=== PATIENT | male | born 1955 | race African-American/Black ===

== ENCOUNTER 2017-08-08 12:09 | Emergency (ER) | payer MEDICAID ==
[~2017-08-08] VITALS: Ht 177.8 cm; Wt 75.0 kg
[2017-08-08 18:32] LABS: HEMATOCRIT. 35.5 % (42.0-52.0); HEMOGLOBIN. 11.5 g/dL (14.0-18.0); MEAN CORPUSCULAR HEMOGLOBIN 27.8 pg (28.0-32.0); MEAN PLATELET VOLUME 9.8 fl (7.4-10.4); PLATELET 78 x1000/uL (130-400); RED BLOOD CELL COUNT 4.13 mill/uL (4.7-6.1); RED CELL DISTRIBUTION WIDTH 16.8 % (11.6-14.6)
[2017-08-08 18:35] LABS: INR 1.4; PARTIAL THROMBOPLASTIN TIME 27.8 sec (23.4-31.0); PROTHROMBIN TIME 14.4 sec (9.4-11.6)
[2017-08-08 18:42] LABS: CARBON DIOXIDE 29 mEq/L (21-32); CHLORIDE 107 mEq/L (98-107)
[2017-08-08] MEDS ORDERED: SODIUM CHLORIDE 0.9% 1,000 ML IV ONE (18:45)
[2017-08-08 19:00] LABS: PLATELET ESTIMATE DECREASED
[2017-08-08] MEDS ORDERED: LOPERAMIDE 2 MG/10 ML UDC PO ONE (20:00)
[2017-08-08] MEDS ORDERED: LOPERAMIDE HCL 2MG CAPSULE PO NR (20:15)
[2017-08-08] MEDS ORDERED: METRONIDAZOLE 500MG TABLET PO ONE (21:00)
[2017-08-08] MEDS ORDERED: LEVOFLOXACIN 500MG TABLET PO ONE (21:00)
[2017-08-09 01:00] VITALS: BP 124/68
== END 2017-08-09 01:05 | disposition home or self-care (01) ==
LOC: ER 12:09
DX: R19.7 Diarrhea, unspecified (principal); I10 Essential (primary) hypertension; K80.20 Calculus of gallbladder without cholecystitis without obstruction; F17.200 Nicotine dependence, unspecified, uncomplicated; F32.9 Major depressive disorder, single episode, unspecified; F14.10 Cocaine abuse, uncomplicated; F10.20 Alcohol dependence, uncomplicated
CPT/HCPCS: 36415; 76705; 80053; 83690; 85025; 85610; 85730; 96360; 96361; 99285; J7030; Z7610

== ENCOUNTER 2017-08-09 02:41 | Emergency (ER) | payer MEDICAID ==
[~2017-08-09] VITALS: Ht 190.5 cm; Wt 83.0 kg
[2017-08-09] MEDS ORDERED: IBUPROFEN 600MG TABLET PO ONE (08:30)
[2017-08-09 09:18] VITALS: BP 126/77
== END 2017-08-09 09:35 | disposition home or self-care (01) ==
LOC: ER 02:41
DX: M25.561 Pain in right knee (principal); M25.562 Pain in left knee; G89.29 Other chronic pain; I10 Essential (primary) hypertension; F17.200 Nicotine dependence, unspecified, uncomplicated
CPT/HCPCS: 73562; 99284

== ENCOUNTER 2017-10-25 21:45 | Emergency (ER) | payer MEDICAID ==
[~2017-10-25] VITALS: Ht 180.3 cm; Wt 84.0 kg
[2017-10-25 23:44] LABS: BASOPHILS % 0.8 % (0.0-2.0); EOSINOPHILS % 1.2 % (0.0-5.0); HEMATOCRIT. 37.6 % (42.0-52.0); HEMOGLOBIN. 12.1 g/dL (14.0-18.0); LYMPHOCYTES % 30.6 % (20.0-50.0); MEAN CORPUSCULAR HEMOGLOBIN 27.1 pg (28.0-32.0); MEAN CORPUSCULAR VOLUME 83.9 fL (80.0-94.0); MEAN PLATELET VOLUME 9.4 fl (7.4-10.4); MONOCYTES % 13.5 % (2.0-8.0); NEUTROPHILS % 53.9 % (40.0-76.0); PLATELET 84 x1000/uL (130-400); RED BLOOD CELL COUNT 4.47 mill/uL (4.7-6.1); RED CELL DISTRIBUTION WIDTH 19.2 % (11.6-14.6)
[2017-10-25 23:46] LABS: CHLORIDE 107 mEq/L (98-107)
[2017-10-25 23:52] LABS: ETHANOL BLOOD < 10 mg/dL
[2017-10-26 01:33] LABS: CLARITY URINE CLEAR (CLEAR); COLOR URINE DARK YELLOW (YELLOW); KETONES URINE TRACE (NEGATIVE); LEUKOCYTE ESTERASE URINE NEGATIVE (NEGATIVE); NITRITE URINE NEGATIVE (NEGATIVE); OCCULT BLOOD URINE TRACE (NEGATIVE); PROTEIN URINE 1+ (NEGATIVE); SPECIFIC GRAVITY URINE 1.022 (1.005-1.030)
[2017-10-26 02:03] LABS: *AMPHETAMINES SCREEN URINE NEGATIVE (NEGATIVE); *BARBITURATES SCREEN URINE NEGATIVE (NEGATIVE); *BENZODIAZEPINES SCREEN URINE NEGATIVE (NEGATIVE); *COCAINE SCREEN URINE PRESUMTIVE POSITIVE (NEGATIVE); CANNABINOID URINE SCREEN NEGATIVE (NEGATIVE); METHADONE URINE SCREEN NEGATIVE (NEGATIVE); OPIATES URINE SCREEN NEGATIVE (NEGATIVE); PHENCYCLIDINE URINE SCREEN NEGATIVE (NEGATIVE)
[2017-10-26 13:09] VITALS: BP 124/56
== END 2017-10-26 13:09 | disposition home or self-care (01) ==
LOC: ER 21:48
DX: M54.5 Low back pain (principal); F14.10 Cocaine abuse, uncomplicated; M79.606 Pain in leg, unspecified; Z59.0 Homelessness
CPT/HCPCS: 36415; 80048; 80305; 80307; 80329; 81003; 85025; 99284; G0482

== ENCOUNTER 2018-07-29 11:44 | Emergency (ER) | payer MEDICAID ==
[~2018-07-29] VITALS: Ht 180.3 cm; Wt 109.0 kg
[2018-07-29 14:03] LABS: CHLORIDE 113 mEq/L (98-107)
[2018-07-29 14:04] LABS: HEMATOCRIT. 36.1 % (42.0-52.0); HEMOGLOBIN. 11.5 g/dL (14.0-18.0); MEAN CORPUSCULAR HEMOGLOBIN 27.5 pg (28.0-32.0); MEAN CORPUSCULAR VOLUME 86.5 fL (80.0-94.0); MEAN PLATELET VOLUME 10.2 fl (7.4-10.4); PLATELET 88 x1000/uL (130-400); RED BLOOD CELL COUNT 4.18 mill/uL (4.7-6.1); RED CELL DISTRIBUTION WIDTH 16.7 % (11.6-14.6)
[2018-07-29 14:07] LABS: ETHANOL BLOOD < 10 mg/dL
[2018-07-29 14:51] LABS: PLATELET ESTIMATE DECREASED
[2018-07-30 10:50] LABS: CLARITY URINE CLOUDY (CLEAR); COLOR URINE YELLOW (YELLOW); KETONES URINE NEGATIVE (NEGATIVE); LEUKOCYTE ESTERASE URINE 1+ (NEGATIVE); NITRITE URINE POSITIVE (NEGATIVE); OCCULT BLOOD URINE TRACE (NEGATIVE); PROTEIN URINE TRACE (NEGATIVE); SPECIFIC GRAVITY URINE 1.017 (1.005-1.030)
[2018-07-30 11:09] LABS: *AMPHETAMINES SCREEN URINE NEGATIVE (NEGATIVE); *BARBITURATES SCREEN URINE NEGATIVE (NEGATIVE); *BENZODIAZEPINES SCREEN URINE NEGATIVE (NEGATIVE); *COCAINE SCREEN URINE PRESUMTIVE POSITIVE (NEGATIVE); METHADONE URINE SCREEN NEGATIVE (NEGATIVE); OPIATES URINE SCREEN NEGATIVE (NEGATIVE)
[2018-07-30 11:10] LABS: CANNABINOID URINE SCREEN NEGATIVE (NEGATIVE); PHENCYCLIDINE URINE SCREEN NEGATIVE (NEGATIVE)
[2018-07-30 14:08] VITALS: BP 136/70
== END 2018-07-30 14:08 | disposition home or self-care (01) ==
LOC: ER 11:59
DX: M79.10 Myalgia, unspecified site (principal); I10 Essential (primary) hypertension; F17.200 Nicotine dependence, unspecified, uncomplicated; R60.9 Edema, unspecified
CPT/HCPCS: 36415; 80053; 80305; 81003; 83690; 85025; 93970; 99284; 99406; G0482

== ENCOUNTER 2018-07-31 19:18 | Inpatient (IN) | payer MEDICAID ==
[~2018-07-31] VITALS: Ht 182.9 cm; Wt 98.0 kg
[2018-08-01 01:22] LABS: BASOPHILS % 0.6 % (0.0-2.0); EOSINOPHILS % 3.3 % (0.0-5.0); HEMATOCRIT. 37.1 % (42.0-52.0); MEAN CORPUSCULAR HEMOGLOBIN 27.7 pg (28.0-32.0); MEAN CORPUSCULAR VOLUME 85.9 fL (80.0-94.0); MEAN PLATELET VOLUME 9.4 fl (7.4-10.4); MONOCYTES % 12.6 % (2.0-8.0); NEUTROPHILS % 53.5 % (40.0-76.0); PLATELET 97 x1000/uL (130-400); RED BLOOD CELL COUNT 4.32 mill/uL (4.7-6.1); RED CELL DISTRIBUTION WIDTH 16.5 % (11.6-14.6)
[2018-08-01 01:28] LABS: CHLORIDE 109 mEq/L (98-107)
[2018-08-01] MEDS ORDERED: ASPIRIN 325MG EC TABLET PO ONE (02:15)
[2018-08-01 08:30] VITALS: BP 168/92
[2018-08-01 09:05] VITALS: BP 168/92
[2018-08-01] MEDS: POTASSIUM CHLORIDE 20MEQ TABLET SR PO SCH (11:35)
[2018-08-01] MEDS: AMLODIPINE 5MG TABLET PO SCH ×2 (11:35→20:52)
[2018-08-01] MEDS ORDERED: CLONIDINE 0.1MG TABLET PO PRN (12:00)
[2018-08-01] MEDS ORDERED: HYDROCODONE/ACETAMINOPHEN 5/325MG TABLET PO PRN (12:00)
[2018-08-01] MEDS ORDERED: IPRATROPIUM/ALBUTEROL 0.5-3(2.5)MG/3ML NEB INH PRN (12:00)
[2018-08-01] MEDS ORDERED: DOCUSATE SODIUM 100MG CAPSULE PO PRN (12:00)
[2018-08-01] MEDS ORDERED: ACETAMINOPHEN 325MG TABLET PO PRN (12:00)
[2018-08-01] MEDS ORDERED: ONDANSETRON HCL 4MG/2ML INJ IV PRN (12:00)
[2018-08-01 12:37] VITALS: BP 129/62
[2018-08-01 13:02] LABS: CREATINE KINASE MB FRACTION 1.2 ng/mL (0.5-3.6)
[2018-08-01 13:04] LABS: PHOSPHORUS 2.3 mg/dL (2.5-4.9)
[2018-08-01] MEDS: NICOTINE 21MG PATCH TD SCH (13:44)
[2018-08-01 13:47] LABS: HEPATITIS B SURFACE ANTIGEN NEGATIVE
[2018-08-01 14:17] LABS: HEPATITIS A AB IGM NEGATIVE (NEGATIVE)
[2018-08-01 16:27] VITALS: BP 152/86
[2018-08-01 18:42] LABS: CLARITY URINE CLOUDY (CLEAR); COLOR URINE DARK YELLOW (YELLOW); KETONES URINE TRACE (NEGATIVE); LEUKOCYTE ESTERASE URINE TRACE (NEGATIVE); NITRITE URINE POSITIVE (NEGATIVE); OCCULT BLOOD URINE TRACE (NEGATIVE); PH URINE 5.5 (4.5-8.0); PROTEIN URINE 1+ (NEGATIVE); SPECIFIC GRAVITY URINE 1.022 (1.005-1.030)
[2018-08-01 18:55] LABS: *AMPHETAMINES SCREEN URINE NEGATIVE (NEGATIVE); *BARBITURATES SCREEN URINE NEGATIVE (NEGATIVE); *BENZODIAZEPINES SCREEN URINE NEGATIVE (NEGATIVE); *COCAINE SCREEN URINE PRESUMTIVE POSITIVE (NEGATIVE); METHADONE URINE SCREEN NEGATIVE (NEGATIVE); OPIATES URINE SCREEN NEGATIVE (NEGATIVE)
[2018-08-01 18:56] LABS: CANNABINOID URINE SCREEN NEGATIVE (NEGATIVE); PHENCYCLIDINE URINE SCREEN NEGATIVE (NEGATIVE)
[2018-08-01 19:58] VITALS: BP 127/69
[2018-08-01] MEDS: METOPROLOL TARTRATE 25MG TABLET PO SCH (20:51)
[2018-08-02 00:10] VITALS: BP 160/91
[2018-08-02 03:46] VITALS: BP 138/76
[2018-08-02 07:04] LABS: BASOPHILS % 0.9 % (0.0-2.0); EOSINOPHILS % 3.4 % (0.0-5.0); HEMATOCRIT. 33.9 % (42.0-52.0); HEMOGLOBIN. 11.1 g/dL (14.0-18.0); LYMPHOCYTES % 38.5 % (20.0-50.0); MEAN CORPUSCULAR HEMOGLOBIN 27.9 pg (28.0-32.0); MEAN CORPUSCULAR VOLUME 85.2 fL (80.0-94.0); MEAN PLATELET VOLUME 10.4 fl (7.4-10.4); MONOCYTES % 14.7 % (2.0-8.0); NEUTROPHILS % 42.5 % (40.0-76.0); PLATELET 91 x1000/uL (130-400); RED BLOOD CELL COUNT 3.97 mill/uL (4.7-6.1); RED CELL DISTRIBUTION WIDTH 16.6 % (11.6-14.6)
[2018-08-02 07:29] LABS: CHLORIDE 110 mEq/L (98-107)
[2018-08-02 08:31] VITALS: BP 128/63
[2018-08-02] MEDS: ASPIRIN 81MG EC TABLET PO SCH (08:54)
[2018-08-02] MEDS: POTASSIUM CHLORIDE 20MEQ TABLET SR PO SCH (08:55)
[2018-08-02] MEDS: METOPROLOL TARTRATE 25MG TABLET PO SCH ×2 (08:55→20:40)
[2018-08-02] MEDS: AMLODIPINE 5MG TABLET PO SCH ×2 (08:55→20:41)
[2018-08-02] MEDS: NICOTINE 21MG PATCH TD SCH (08:56)
[2018-08-02 12:31] VITALS: BP 113/60
[2018-08-02] MEDS: LEVOFLOXACIN 750MG PREMIX 150 ML IV SCH (12:58)
[2018-08-02 16:54] VITALS: BP 122/57
[2018-08-02 20:00] VITALS: BP 115/62
[2018-08-03 00:02] VITALS: BP 136/81
[2018-08-03 04:00] VITALS: BP 138/83
[2018-08-03] MEDS: METOPROLOL TARTRATE 25MG TABLET PO SCH ×2 (09:00→20:18)
[2018-08-03] MEDS: POTASSIUM CHLORIDE 20MEQ TABLET SR PO SCH (09:39)
[2018-08-03] MEDS: AMLODIPINE 5MG TABLET PO SCH ×2 (09:39→20:19)
[2018-08-03 09:40] LABS: EOSINOPHILS % 3.1 % (0.0-5.0); HEMATOCRIT. 36.7 % (42.0-52.0); HEMOGLOBIN. 11.9 g/dL (14.0-18.0); LYMPHOCYTES % 28.9 % (20.0-50.0); MEAN CORPUSCULAR HEMOGLOBIN 27.7 pg (28.0-32.0); MEAN CORPUSCULAR VOLUME 85.8 fL (80.0-94.0); MEAN PLATELET VOLUME 9.5 fl (7.4-10.4); MONOCYTES % 11.9 % (2.0-8.0); NEUTROPHILS % 55.1 % (40.0-76.0); PLATELET 98 x1000/uL (130-400); RED BLOOD CELL COUNT 4.28 mill/uL (4.7-6.1); RED CELL DISTRIBUTION WIDTH 16.4 % (11.6-14.6)
[2018-08-03] MEDS: NICOTINE 21MG PATCH TD SCH (09:42)
[2018-08-03 10:38] LABS: CHLORIDE 110 mEq/L (98-107)
[2018-08-03] MEDS: LEVOFLOXACIN 750MG PREMIX 150 ML IV SCH (11:24)
[2018-08-03] MEDS: ASPIRIN 81MG EC TABLET PO SCH (11:24)
[2018-08-03 11:35] VITALS: BP 137/56
[2018-08-03 20:00] VITALS: BP 154/83
[2018-08-04] VITALS: BP 141/81
[2018-08-04 04:00] VITALS: BP 137/70
[2018-08-04 08:00] VITALS: BP 148/60
[2018-08-04] MEDS: METOPROLOL TARTRATE 25MG TABLET PO SCH ×2 (09:58→21:00)
[2018-08-04] MEDS: ASPIRIN 81MG EC TABLET PO SCH (09:59)
[2018-08-04] MEDS: NICOTINE 21MG PATCH TD SCH (09:59)
[2018-08-04] MEDS: AMLODIPINE 5MG TABLET PO SCH ×2 (09:59→21:00)
[2018-08-04 10:13] LABS: BASOPHILS % 1.1 % (0.0-2.0); EOSINOPHILS % 4.1 % (0.0-5.0); HEMATOCRIT. 36.6 % (42.0-52.0); HEMOGLOBIN. 11.9 g/dL (14.0-18.0); LYMPHOCYTES % 30.5 % (20.0-50.0); MEAN CORPUSCULAR HEMOGLOBIN 27.9 pg (28.0-32.0); MEAN CORPUSCULAR VOLUME 85.7 fL (80.0-94.0); MEAN PLATELET VOLUME 10.2 fl (7.4-10.4); MONOCYTES % 14.3 % (2.0-8.0); PLATELET 96 x1000/uL (130-400); RED BLOOD CELL COUNT 4.27 mill/uL (4.7-6.1); RED CELL DISTRIBUTION WIDTH 16.2 % (11.6-14.6)
[2018-08-04 10:58] LABS: CHLORIDE 109 mEq/L (98-107)
[2018-08-04] MEDS: POTASSIUM CHLORIDE 20MEQ TABLET SR PO SCH (11:23)
[2018-08-04] MEDS: LEVOFLOXACIN 750MG PREMIX 150 ML IV SCH (11:53)
[2018-08-04 12:00] VITALS: BP 105/59
[2018-08-04 16:00] VITALS: BP 116/58
[2018-08-04] MEDS ORDERED: MECLIZINE 25MG TABLET PO PRN (16:45)
[2018-08-04 20:00] VITALS: BP 127/67
[2018-08-05] VITALS: BP 130/60
[2018-08-05 04:00] VITALS: BP 132/66
[2018-08-05 08:42] VITALS: BP 131/77
[2018-08-05] MEDS: POTASSIUM CHLORIDE 20MEQ TABLET SR PO SCH (09:14)
[2018-08-05] MEDS: AMLODIPINE 5MG TABLET PO SCH ×2 (09:14→21:00)
[2018-08-05] MEDS: NICOTINE 21MG PATCH TD SCH (09:15)
[2018-08-05] MEDS: METOPROLOL TARTRATE 25MG TABLET PO SCH ×2 (09:15→21:00)
[2018-08-05] MEDS: ASPIRIN 81MG EC TABLET PO SCH (09:15)
[2018-08-05] MEDS: LEVOFLOXACIN 250MG TABLET PO SCH (13:34)
[2018-08-05 15:11] VITALS: BP 131/77
[2018-08-05 16:00] VITALS: BP 122/62
[2018-08-05 20:00] VITALS: BP 138/73
[2018-08-06 00:03] VITALS: BP 126/64
[2018-08-06 04:00] VITALS: BP 116/62
[2018-08-06 08:00] VITALS: BP 164/102
[2018-08-06] MEDS: ASPIRIN 81MG EC TABLET PO SCH (09:01)
[2018-08-06] MEDS: AMLODIPINE 5MG TABLET PO SCH (09:02)
[2018-08-06] MEDS: NICOTINE 21MG PATCH TD SCH (09:02)
[2018-08-06] MEDS: METOPROLOL TARTRATE 25MG TABLET PO SCH (09:02)
[2018-08-06] MEDS: POTASSIUM CHLORIDE 20MEQ TABLET SR PO SCH (09:02)
[2018-08-06 12:10] VITALS: BP 105/51
[2018-08-06] MEDS: LEVOFLOXACIN 250MG TABLET PO SCH (15:33)
[2018-08-06 16:48] VITALS: BP 115/67
== END 2018-08-06 16:10 | disposition home or self-care (01) | DRG 139 ==
LOC: ER 19:18 → 6WST 08-01 03:07 → ENRESERV 08-01 07:12 → ER 08-01 08:47
PROVIDERS: ADMIT Internal Medicine; ATTEND Internal Medicine
DX: J18.9 Pneumonia, unspecified organism (principal); E43 Unspecified severe protein-calorie malnutrition; K76.0 Fatty (change of) liver, not elsewhere classified; M94.0 Chondrocostal junction syndrome [Tietze]; J44.9 Chronic obstructive pulmonary disease, unspecified; B18.2 Chronic viral hepatitis C; E66.9 Obesity, unspecified; R55 Syncope and collapse; I10 Essential (primary) hypertension; F17.200 Nicotine dependence, unspecified, uncomplicated; K80.20 Calculus of gallbladder without cholecystitis without obstruction; I49.3 Ventricular premature depolarization; Z68.29 Body mass index [BMI] 29.0-29.9, adult; Z88.0 Allergy status to penicillin; Z59.0 Homelessness
CPT/HCPCS: 36415; 71045; 76700; 80048; 80061; 80305; 82550; 82553; 83036; 83735; 83880; 84100; 84443; 84484; 86705; 86709; 86803; 87340; 93005; 93306; 93970; 97116; 97162; 99285; J1956; J7050; J8597

== ENCOUNTER 2018-09-01 10:40 | Emergency (ER) | payer MEDICAID ==
[~2018-09-01] VITALS: Ht 177.8 cm; Wt 125.0 kg
[2018-09-01] MEDS ORDERED: SODIUM CHLORIDE 0.9% 1,000 ML IV ONE (12:15)
[2018-09-01 13:11] LABS: BASOPHILS % 0.7 % (0.0-2.0); EOSINOPHILS % 0.7 % (0.0-5.0); HEMATOCRIT. 35.3 % (42.0-52.0); HEMOGLOBIN. 11.4 g/dL (14.0-18.0); LYMPHOCYTES % 16.9 % (20.0-50.0); MEAN CORPUSCULAR VOLUME 83.3 fL (80.0-94.0); MEAN PLATELET VOLUME 10.1 fl (7.4-10.4); NEUTROPHILS % 73.7 % (40.0-76.0); PLATELET 86 x1000/uL (130-400); RED BLOOD CELL COUNT 4.23 mill/uL (4.7-6.1); RED CELL DISTRIBUTION WIDTH 16.4 % (11.6-14.6)
[2018-09-01 13:18] LABS: CHLORIDE 107 mEq/L (98-107)
[2018-09-01 13:20] LABS: CLARITY URINE CLEAR (CLEAR); COLOR URINE YELLOW (YELLOW); KETONES URINE NEGATIVE (NEGATIVE); LEUKOCYTE ESTERASE URINE NEGATIVE (NEGATIVE); NITRITE URINE NEGATIVE (NEGATIVE); OCCULT BLOOD URINE 1+ (NEGATIVE); PROTEIN URINE 1+ (NEGATIVE); SPECIFIC GRAVITY URINE 1.015 (1.005-1.030)
[2018-09-01 13:23] LABS: ETHANOL BLOOD < 10 mg/dL
[2018-09-01] MEDS ORDERED: ACETAMINOPHEN 650MG/20.3ML UDC PO ONE (14:00)
[2018-09-01 14:31] LABS: *AMPHETAMINES SCREEN URINE NEGATIVE (NEGATIVE); *BARBITURATES SCREEN URINE NEGATIVE (NEGATIVE); *BENZODIAZEPINES SCREEN URINE NEGATIVE (NEGATIVE); *COCAINE SCREEN URINE PRESUMTIVE POSITIVE (NEGATIVE); METHADONE URINE SCREEN NEGATIVE (NEGATIVE)
[2018-09-01 14:32] LABS: CANNABINOID URINE SCREEN NEGATIVE (NEGATIVE); OPIATES URINE SCREEN NEGATIVE (NEGATIVE); PHENCYCLIDINE URINE SCREEN NEGATIVE (NEGATIVE)
[2018-09-02 15:30] VITALS: BP 130/84
== END 2018-09-02 15:30 | disposition home or self-care (01) ==
LOC: ER 10:46
DX: G89.29 Other chronic pain (principal); M54.5 Low back pain; K42.9 Umbilical hernia without obstruction or gangrene; I10 Essential (primary) hypertension; Z88.0 Allergy status to penicillin
CPT/HCPCS: 36415; 80048; 80305; 81003; 85025; 99283; G0482; J7030

== ENCOUNTER 2018-10-13 08:25 | Inpatient (IN) | payer MEDICAID ==
[~2018-10-13] VITALS: Ht 172.7 cm; Wt 91.8 kg
[2018-10-13] MEDS ORDERED: SODIUM CHLORIDE 0.9% 1,000 ML IV ONE ×2 (08:46→18:43)
[2018-10-13] MEDS ORDERED: ONDANSETRON HCL 4MG/2ML INJ IV STA (08:46)
[2018-10-13] MEDS ORDERED: FOLIC ACID 1 MG, THIAMINE HCL 100 MG, MVI, ADULT NO.1 10 ML in DEXTROSE 5% WATER 1,000 ML IV ONE ×4 (09:00)
[2018-10-13 09:11] LABS: BASOPHILS % 0.3 % (0.0-2.0); EOSINOPHILS % 0.1 % (0.0-5.0); HEMATOCRIT. 36.6 % (42.0-52.0); HEMOGLOBIN. 11.8 g/dL (14.0-18.0); LYMPHOCYTES % 13.4 % (20.0-50.0); MEAN CORPUSCULAR HEMOGLOBIN 26.7 pg (28.0-32.0); MEAN CORPUSCULAR VOLUME 82.5 fL (80.0-94.0); MEAN PLATELET VOLUME 9.7 fl (7.4-10.4); MONOCYTES % 10.8 % (2.0-8.0); NEUTROPHILS % 75.4 % (40.0-76.0); PLATELET 101 x1000/uL (130-400); RED BLOOD CELL COUNT 4.44 mill/uL (4.7-6.1); RED CELL DISTRIBUTION WIDTH 17.4 % (11.6-14.6)
[2018-10-13 09:17] LABS: CHLORIDE 103 mEq/L (98-107); INR 1.3; PROTHROMBIN TIME 13.5 sec (9.1-11.1)
[2018-10-13 09:21] LABS: ETHANOL BLOOD < 10 mg/dL
[2018-10-13 09:26] LABS: CREATINE KINASE 163 IU/L (39-308)
[2018-10-13] MEDS ORDERED: HYDRALAZINE 20MG/ML VIAL IV ONE (09:30)
[2018-10-13 11:02] LABS: CLARITY URINE CLEAR (CLEAR); COLOR URINE DARK YELLOW (YELLOW); KETONES URINE TRACE (NEGATIVE); LEUKOCYTE ESTERASE URINE NEGATIVE (NEGATIVE); NITRITE URINE NEGATIVE (NEGATIVE); OCCULT BLOOD URINE TRACE (NEGATIVE); PROTEIN URINE 1+ (NEGATIVE); SPECIFIC GRAVITY URINE 1.018 (1.005-1.030)
[2018-10-13 11:40] LABS: *COCAINE SCREEN URINE NEGATIVE (NEGATIVE); METHADONE URINE SCREEN NEGATIVE (NEGATIVE); OPIATES URINE SCREEN NEGATIVE (NEGATIVE); PHENCYCLIDINE URINE SCREEN NEGATIVE (NEGATIVE)
[2018-10-13 11:41] LABS: *AMPHETAMINES SCREEN URINE NEGATIVE (NEGATIVE); *BARBITURATES SCREEN URINE NEGATIVE (NEGATIVE); *BENZODIAZEPINES SCREEN URINE PRESUMTIVE POSITIVE (NEGATIVE); CANNABINOID URINE SCREEN NEGATIVE (NEGATIVE)
[2018-10-13] MEDS ORDERED: CLONIDINE 0.1MG TABLET PO PRN (15:15)
[2018-10-13] MEDS ORDERED: HYDROCODONE/ACETAMINOPHEN 5/325MG TABLET PO PRN (15:15)
[2018-10-13] MEDS ORDERED: ONDANSETRON HCL 4MG/2ML INJ IV PRN (15:15)
[2018-10-13] MEDS ORDERED: ACETAMINOPHEN 325MG TABLET PO PRN (15:15)
[2018-10-13] MEDS ORDERED: IPRATROPIUM/ALBUTEROL 0.5-3(2.5)MG/3ML NEB INH PRN (15:15)
[2018-10-13] MEDS ORDERED: LORAZEPAM 2MG/ML CPJ IM ONE (15:15)
[2018-10-13 21:30] VITALS: BP 140/71
[2018-10-13 22:02] VITALS: BP 140/71
[2018-10-13] MEDS: CHLORDIAZEPOXIDE 25MG CAPSULE PO SCH (22:39)
[2018-10-14] VITALS: BP 113/58
[2018-10-14] MEDS: LORAZEPAM 0.5MG TABLET PO PRN (03:42)
[2018-10-14 04:00] VITALS: BP 134/69
[2018-10-14] MEDS: CHLORDIAZEPOXIDE 25MG CAPSULE PO SCH ×3 (05:27→21:36)
[2018-10-14 06:50] LABS: BASOPHILS % 0.6 % (0.0-2.0); EOSINOPHILS % 2.3 % (0.0-5.0); HEMATOCRIT. 28.8 % (42.0-52.0); HEMOGLOBIN. 9.4 g/dL (14.0-18.0); LYMPHOCYTES % 34.3 % (20.0-50.0); MEAN CORPUSCULAR HEMOGLOBIN 26.8 pg (28.0-32.0); MEAN CORPUSCULAR VOLUME 82.3 fL (80.0-94.0); MEAN PLATELET VOLUME 10.4 fl (7.4-10.4); NEUTROPHILS % 48.8 % (40.0-76.0); PLATELET 90 x1000/uL (130-400); RED CELL DISTRIBUTION WIDTH 17.3 % (11.6-14.6)
[2018-10-14 07:52] LABS: CHLORIDE 107 mEq/L (98-107)
[2018-10-14 08:00] VITALS: BP 132/65
[2018-10-14 10:26] LABS: BG BASE EXCESS 0.7 mmol/L (-2.0-2.0); BG CARBOXYHEMOGLOBIN 0.4 % (0.5-1.5); BG FRACTION INSPIRED OXYGEN 21; BG HCO3 ACT 26.4 mmol/L (22.0-26.0); BG METHEMOGLOBIN 0.1 % (0.0-1.5); BG OXYHEMOGLOBIN 93.5 % (94.0-97.0); BG PCO2 47.4 mmHg (35.0-45.0); BG PH 7.364 (7.350-7.450); BG PO2 77.6 mmHg (75.0-100.0); BG SAMPLE SITE RIGHT RADIAL; BG TOTAL HEMOGLOBIN 10.7 g/dL (12.0-18.0); BG VENT MODE ROOM AIR
[2018-10-14] MEDS: FOLIC ACID/VITAMIN B COMP W-C TABLET PO SCH (10:50)
[2018-10-14] MEDS: THIAMINE HCL 100MG TABLET PO SCH (10:50)
[2018-10-14 12:00] VITALS: BP 111/59
[2018-10-14 16:00] VITALS: BP 107/47
[2018-10-14 20:00] VITALS: BP 136/71
[2018-10-15] VITALS: BP 137/59
[2018-10-15 04:00] VITALS: BP 134/58
[2018-10-15] MEDS: CHLORDIAZEPOXIDE 25MG CAPSULE PO SCH ×3 (05:10→21:34)
[2018-10-15 08:00] VITALS: BP 110/49
[2018-10-15] MEDS: FOLIC ACID/VITAMIN B COMP W-C TABLET PO SCH ×2 (08:59→09:02)
[2018-10-15] MEDS: THIAMINE HCL 100MG TABLET PO SCH (08:59)
[2018-10-15 12:00] VITALS: BP 110/60
[2018-10-15 16:00] VITALS: BP 131/77
[2018-10-15 20:00] VITALS: BP 113/64
[2018-10-16] VITALS: BP_SYST 119; BP_SYST 126; BP_SYST 136; BP_DIAS 68; BP_DIAS 74; BP_DIAS 78
[2018-10-16 04:00] VITALS: BP 141/69
[2018-10-16] MEDS: CHLORDIAZEPOXIDE 25MG CAPSULE PO SCH ×4 (05:34→22:10)
[2018-10-16 08:00] VITALS: BP 127/72
[2018-10-16 09:28] LABS: BASOPHILS % 0.7 % (0.0-2.0); EOSINOPHILS % 5.1 % (0.0-5.0); HEMATOCRIT. 34.9 % (42.0-52.0); HEMOGLOBIN. 11.1 g/dL (14.0-18.0); LYMPHOCYTES % 36.7 % (20.0-50.0); MEAN CORPUSCULAR HEMOGLOBIN 26.7 pg (28.0-32.0); MEAN CORPUSCULAR VOLUME 83.8 fL (80.0-94.0); MEAN PLATELET VOLUME 9.7 fl (7.4-10.4); MONOCYTES % 12.7 % (2.0-8.0); NEUTROPHILS % 44.8 % (40.0-76.0); PLATELET 117 x1000/uL (130-400); RED BLOOD CELL COUNT 4.17 mill/uL (4.7-6.1); RED CELL DISTRIBUTION WIDTH 17.4 % (11.6-14.6)
[2018-10-16] MEDS: FOLIC ACID/VITAMIN B COMP W-C TABLET PO SCH (09:56)
[2018-10-16] MEDS: THIAMINE HCL 100MG TABLET PO SCH (09:56)
[2018-10-16 10:40] LABS: CHLORIDE 106 mEq/L (98-107)
[2018-10-16 10:47] LABS: TOTAL IRON BINDING CAPACITY 358 ug/dL (250-450)
[2018-10-16 10:51] LABS: CREATINE KINASE MB FRACTION < 1.0 ng/mL (0.5-3.6)
[2018-10-16 12:00] VITALS: BP_SYST 125; BP_SYST 127; BP_SYST 144; BP_DIAS 63; BP_DIAS 67; BP_DIAS 82
[2018-10-16 15:21] LABS: FOLIC ACID (FOLATE) SERUM 17.9 ng/mL (>5.38)
[2018-10-16 20:00] VITALS: BP 124/60
[2018-10-16] MEDS: LORAZEPAM 0.5MG TABLET PO PRN (21:42)
[2018-10-17] VITALS: BP_SYST 126; BP_SYST 134; BP_DIAS 73; BP_DIAS 80
[2018-10-17 04:00] VITALS: BP 119/78
[2018-10-17] MEDS: CHLORDIAZEPOXIDE 25MG CAPSULE PO SCH ×3 (06:27→21:15)
[2018-10-17 06:50] LABS: BASOPHILS % 1.1 % (0.0-2.0); EOSINOPHILS % 4.9 % (0.0-5.0); HEMATOCRIT. 31.9 % (42.0-52.0); HEMOGLOBIN. 10.6 g/dL (14.0-18.0); LYMPHOCYTES % 37.4 % (20.0-50.0); MEAN CORPUSCULAR HEMOGLOBIN 27.3 pg (28.0-32.0); MEAN CORPUSCULAR VOLUME 82.4 fL (80.0-94.0); MEAN PLATELET VOLUME 10.6 fl (7.4-10.4); MONOCYTES % 13.1 % (2.0-8.0); NEUTROPHILS % 43.5 % (40.0-76.0); PLATELET 118 x1000/uL (130-400); RED BLOOD CELL COUNT 3.87 mill/uL (4.7-6.1); RED CELL DISTRIBUTION WIDTH 17.6 % (11.6-14.6)
[2018-10-17 07:22] LABS: CHLORIDE 108 mEq/L (98-107)
[2018-10-17 08:00] VITALS: BP_SYST 113; BP_SYST 116; BP_SYST 128; BP_DIAS 65; BP_DIAS 67; BP_DIAS 77
[2018-10-17] MEDS: THIAMINE HCL 100MG TABLET PO SCH (09:33)
[2018-10-17] MEDS: FOLIC ACID/VITAMIN B COMP W-C TABLET PO SCH (09:33)
[2018-10-17 12:00] VITALS: BP 115/68
[2018-10-17 16:00] VITALS: BP 140/94
[2018-10-17 20:00] VITALS: BP 163/61
[2018-10-18] VITALS: BP 122/79
[2018-10-18] MEDS: CHLORDIAZEPOXIDE 25MG CAPSULE PO SCH ×2 (05:10→14:44)
[2018-10-18 07:58] LABS: BASOPHILS % 0.9 % (0.0-2.0); EOSINOPHILS % 4.8 % (0.0-5.0); HEMATOCRIT. 32.9 % (42.0-52.0); HEMOGLOBIN. 10.5 g/dL (14.0-18.0); LYMPHOCYTES % 40.3 % (20.0-50.0); MEAN CORPUSCULAR HEMOGLOBIN 26.5 pg (28.0-32.0); MEAN PLATELET VOLUME 9.7 fl (7.4-10.4); MONOCYTES % 11.6 % (2.0-8.0); NEUTROPHILS % 42.4 % (40.0-76.0); PLATELET 121 x1000/uL (130-400); RED BLOOD CELL COUNT 3.97 mill/uL (4.7-6.1); RED CELL DISTRIBUTION WIDTH 17.6 % (11.6-14.6)
[2018-10-18 08:00] VITALS: BP 121/73
[2018-10-18 08:04] LABS: CHLORIDE 108 mEq/L (98-107)
[2018-10-18] MEDS: FOLIC ACID/VITAMIN B COMP W-C TABLET PO SCH (09:03)
[2018-10-18] MEDS: THIAMINE HCL 100MG TABLET PO SCH (09:03)
[2018-10-18 12:00] VITALS: BP_SYST 115; BP_SYST 136; BP_SYST 139; BP_DIAS 71; BP_DIAS 77; BP_DIAS 80
[2018-10-18 16:00] VITALS: BP 112/68
[2018-10-18 18:02] VITALS: BP 112/68
== END 2018-10-18 18:47 | disposition home or self-care (01) | DRG 469 ==
LOC: ER 08:32 → 5WST 14:31 → ENRESERV 20:24 → 5WST 22:29
PROVIDERS: ADMIT Internal Medicine; ATTEND Internal Medicine
DX: N17.9 Acute kidney failure, unspecified (principal); D69.6 Thrombocytopenia, unspecified; J68.0 Bronchitis and pneumonitis due to chemicals, gases, fumes and vapors; G90.8 Other disorders of autonomic nervous system; E86.0 Dehydration; I16.0 Hypertensive urgency; K76.0 Fatty (change of) liver, not elsewhere classified; B18.2 Chronic viral hepatitis C; D64.9 Anemia, unspecified; R55 Syncope and collapse; K80.20 Calculus of gallbladder without cholecystitis without obstruction; F10.239 Alcohol dependence with withdrawal, unspecified; F17.200 Nicotine dependence, unspecified, uncomplicated; I10 Essential (primary) hypertension; Z59.0 Homelessness; Z82.49 Family history of ischemic heart disease and other diseases of the circulatory system; Z86.73 Personal history of transient ischemic attack (TIA), and cerebral infarction without residual deficits; Z91.14 Patient's other noncompliance with medication regimen; Z91.81 History of falling; Z88.0 Allergy status to penicillin; F19.10 Other psychoactive substance abuse, uncomplicated
CPT/HCPCS: 36415; 36600; 70551; 71045; 76770; 80048; 80305; 80307; 80329; 82140; 82375; 82550; 82553; 82607; 82728; 82746; 82805; 82962; 83540; 83550; 83880; 84443; 84484; 93005; 93306; 93880; 96361; 96365; 96372; 96375; 97116; 97162; 99285; C1893; J0360; J2060; J2405; J3411; J3490; J7030; J7070